=== PATIENT | female | born 1975 | race Caucasian/White ===

== ENCOUNTER 2017-09-12 08:09 | Emergency (ER) | payer MEDICAID ==
[~2017-09-12] VITALS: Ht 152.4 cm; Wt 749.8 kg
--- NOTE | 2017-09-12 08:17 | NUR ---
PT AMBULATED TO BED 7
[2017-09-12 08:18] VITALS: BP 130/76
--- NOTE | 2017-09-12 08:27 | NUR ---
PATIENT PRESENTS TO ED WITH SUDDEN ONSET OF EPIGASTRIC STABBING PAIN,NON RADIATING SINCE THIS PAST MIDNIGHT WHILE AT WORK-- DENIES N/V/D AND NO ETOH/SMOKE USE RECENTLY DENIES N/V/D; SKIN IS PINK/WARM/DRY; AAOX4 WITH EVEN AND STEADY GAIT; LUNGS CLEAR BL; HR EVEN AND REGULAR; PT DENIES ANY FEVER, CP, SOB, OR COUGH AT THIS TIME; PATIENT STATES PAIN OF 8/10 AT THIS TIME; VSS; PATIENT POSITIONED FOR COMFORT; HOB ELEVATED; BEDRAILS UP X2; BED DOWN. ER MD MADE AWARE OF PT STATUS.
[2017-09-12] MEDS ORDERED: ALUMINUM HYD/MAG/SIMETHICONE 30 ML UDC PO ONE (08:35)
[2017-09-12] MEDS ORDERED: LIDOCAINE VISCOUS 2% 20 ML UDC PO ONE (08:35)
--- NOTE | 2017-09-12 09:46 | NUR ---
PT STATES, WHAT WE GAVE HER , HELPED WITH THE PAIN AND SHE WAS ABLE TO SLEEP.
[2017-09-12] MEDS ORDERED: PANTOPRAZOLE 40 MG TABEC PO ONE (10:35)
[2017-09-12 11:04] VITALS: BP 130/89
--- NOTE | 2017-09-12 11:04 | NUR ---
Patient discharged with v/s stable. Written and verbal after care instructions given and explained. Patient alert, oriented and verbalized understanding of instructions. Ambulatory with steady gait. All questions addressed prior to discharge. ID band removed. Patient advised to follow up with PMD. Rx of PRILOSEC given. Patient educated on indication of medication including possible reaction and side effects. Opportunity to ask questions provided and answered.
== END 2017-09-12 11:04 | disposition home or self-care (01) ==
LOC: MED 08:09
DX: K29.70 Gastritis, unspecified, without bleeding (principal)
CPT/HCPCS: 81002; 81025; 99283

== ENCOUNTER 2018-05-22 13:34 | Observation (INO) | payer MEDICAID ==
[~2018-05-22] VITALS: Ht 152.4 cm; Wt 79.9 kg
[2018-05-22 13:45] VITALS: BP 152/99
[2018-05-22 14:29] LABS: BASOPHILS % (AUTO) 0.3 % (0.0-2.0); EOSINOPHILS % (AUTO) 0.2 % (0.0-4.0); HEMATOCRIT 30.8 % (36-48); HEMOGLOBIN 10.3 g/dL (12.0-16.0); LYMPHOCYTES # (AUTO) 0.4 K/uL (2.5-16.5); LYMPHOCYTES % (AUTO) 7.2 % (20.5-51.1); MEAN CORPUSCULAR HEMOGLOBIN 29 pg (27-31); MEAN CORPUSCULAR HGB CONC 33 g/dL (33-37); MEAN CORPUSCULAR VOLUME 85.9 fL (80-94); MONOCYTES # (AUTO) 0.4 K/uL (0.8-1.0); MONOCYTES % (AUTO) 7.9 % (1.7-9.3); NEUTROPHILS # (AUTO) 4.7 K/uL (1.8-7.7); NEUTROPHILS % (AUTO) 84.4 % (42.2-75.2); PLATELET COUNT (AUTO) 297 K/uL (140-450); RED BLOOD CELL COUNT(AUTO) 3.59 MIL/uL (4.20-5.40); RED CELL DISTRIBUTION WIDTH 12.5 % (11.6-13.7); WHITE BLOOD COUNT (AUTO) 5.5 K/uL (4.8-10.8)
[2018-05-22] MEDS ORDERED: NACL 0.9% 1,000 ML IV ONE (14:30)
[2018-05-22 14:43] LABS: ANION GAP 13.2 (8-16); CARBON DIOXIDE 24.3 mmol/L (21-32); CREATININE 0.8 mg/dL (0.6-1.3); POTASSIUM 3.5 mmol/L (3.5-5.1)
[2018-05-22 14:54] LABS: APPEARANCE,URINE CLEAR (CLEAR); BILIRUBIN,URINE NEGATIVE (NEGATIVE); BLOOD, URINE NEGATIVE (NEGATIVE); COLOR,URINE YELLOW (YELLOW); LEUKOCYTE ESTERASE ,URINE NEGATIVE (NEGATIVE); NITRITE, URINE NEGATIVE (NEGATIVE); PH,URINE 6.5 (5.0-9.0); UGLUCOSE TRACE (NEGATIVE)
[2018-05-22] MEDS ORDERED: NALBUPHINE 10 MG/ML AMP IVP SCH (16:50)
[2018-05-22] MEDS ORDERED: NALBUPHINE 10 MG/ML AMP ONE (17:09)
[2018-05-22 17:53] VITALS: BP 166/88
[2018-05-22 18:24] LABS: APPEARANCE,URINE CLEAR (CLEAR); BILIRUBIN,URINE NEGATIVE (NEGATIVE); BLOOD, URINE NEGATIVE (NEGATIVE); COLOR,URINE YELLOW (YELLOW); LEUKOCYTE ESTERASE ,URINE NEGATIVE (NEGATIVE); NITRITE, URINE NEGATIVE (NEGATIVE); PH,URINE 7.5 (5.0-9.0); UGLUCOSE NEGATIVE (NEGATIVE)
== END 2018-05-22 19:45 | disposition home or self-care (01) ==
LOC: MED 13:34 → MLD 16:10
PROVIDERS: ADMIT Obstetrics & Gynecology; ATTEND Obstetrics & Gynecology
DX: O26.893 Other specified pregnancy related conditions, third trimester (principal); R10.30 Lower abdominal pain, unspecified; O21.2 Late vomiting of pregnancy; Z3A.34 34 weeks gestation of pregnancy
CPT/HCPCS: 36415; 76805; 80048; 81003; 81025; 84702; 85025; 86900; 86901; 87804; 96361; 96374; 99284; C1758; G0378; J2300; Q0092; 96360; 99285